=== PATIENT | male | born 1955 | race Caucasian/White ===

== ENCOUNTER 2016-08-21 09:00 | Outpatient (CLI) ==
[2015-03-08 11:33] VITALS: BMI 28.8
[2016-08-21 10:09] LABS: CREATININE 1.37 mg/dL (0.60-1.10)
--- NOTE | 2016-08-21 11:53 | CT ---
EXAM: CTA of the abdomen and pelvis. History: Abdominal pain and bloating. Comparison: None available. Technique: Multiplanar CT images through the abdomen pelvis were obtained with and without the admi nistration of IV contrast. MIP images and 3-D reconstructions were also acquired. Findings: Dependent atelectasis within the lung bases. No acute osseous abnormalities. 2 mm left renal calculus. No right renal calculi. No hydronephrosis. No ureteral calculi. Cholel ithiasis. Fatty infiltration of the liver with areas of focal fatty sparing. Calcified granulomas within the spleen. The pancreas is unremarkable. Small bilateral renal cysts. Adrenal glands are unremarkable. 1.5 cm splenic cyst. No bowel obstruction. The appendix is normal. No free air. N o ascites. Mild diffuse bladder wall thickening. Prostate is not significantly enlarged. No perir ectal inflammation. Atherosclerotic vascular calcifications. The celiac artery and superior mesenteric arteries are pat ent without significant disease. The inferior mesenteric artery is visualized and is patent. The b ilateral renal arteries are patent without significant disease. No abdominal aortic aneurysm. No a ortic dissection. There is a moderate amount of heterogeneous calcific and soft plaque within the d istal abdominal aorta. Mild to moderate narrowing of the bilateral common iliac arteries with soft and calcific plaque. Impression: 1. No acute intra-abdominal or pelvic process. 2. No abdominal aortic aneurysm and no aortic dissection. Moderate heterogeneous calcific and soft plaque within the distal abdominal aorta. 3. The arterial vessels of the abdominal aorta are patent without significant disease. 4. Fatty infiltration of the liver with areas of focal fatty sparing. 5. Cholelithiasis. 6. Mild diffuse bladder wall thickening. Correlate with urinalysis for possible mild cystitis.
== END 2016-08-21 09:01 | disposition home or self-care (01) ==
LOC: RAD 09:00 → LAB 09:01
PROVIDERS: ATTEND Internal Medicine
DX: R10.9 Unspecified abdominal pain (principal); R14.0 Abdominal distension (gaseous)
CPT/HCPCS: 36415; 82565